=== PATIENT | male | born 1990 | race Caucasian/White ===

== ENCOUNTER 2017-05-05 01:55 | Emergency (ER) | payer SELFPAY ==
[~2017-05-05] VITALS: Ht 182.9 cm; Wt 80.0 kg
[2017-05-05 01:57] VITALS: BP 135/90; PULSE 71; RESP 16; TEMP 98.1; O2SAT 100
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
== END 2017-05-05 03:03 | disposition home or self-care (01) ==
LOC: NEPD 01:55
DX: S16.1XXA Strain of muscle, fascia and tendon at neck level, initial encounter (principal); M62.838 Other muscle spasm; X50.9XXA Other and unspecified overexertion or strenuous movements or postures, initial encounter; Y93.18 Activity, surfing, windsurfing and boogie boarding
CPT/HCPCS: 72050; 99283